=== PATIENT | female | born 1955 | race Two or more races ===

== ENCOUNTER 2025-08-25 09:40 | Outpatient (CLI) | payer OTHER | END 2025-08-25 09:54 | disposition home or self-care (01) | LOC: MAMO-SONO 09:40 | PROVIDERS: ATTEND General Practice | DX: K81.9 Cholecystitis, unspecified (principal); N60.99 Unspecified benign mammary dysplasia of unspecified breast; Z12.31 Encounter for screening mammogram for malignant neoplasm of breast ==